=== PATIENT | male | born 1955 | race Two or more races ===

== ENCOUNTER 2024-10-30 21:47 | Emergency (ER) | payer OTHER, SELFPAY ==
[2024-10-30 23:20] VITALS: BP 146/79; PULSE 72; RESP 16; TEMP 36.6; O2SAT 97
[2024-10-30 23:23] LABS: Collection Type, Urine Clean Catch; Squamous Epithelial Cell,Urine 0 /hpf (0-5)
[2024-10-30 23:31] LABS: Bilirubin,Urine Negative (Negative); Blood,Urine Negative (Negative); Clarity,Urine Clear (Clear/Hazy); Color,Urine Lt-Yellow (Lt Yel-Yel); Glucose, Urine Negative (Negative); Ketones,Urine Negative (Negative); Leukocyte Esterase,Urine Positive (Negative); Nitrite,Urine Negative (Negative); PH,Urine 7.0 (5.0-7.0); Protein,Urine Trace (Neg - Trace); RBC,Urine 5 /hpf (0-3); Specific Gravity,Urine 1.029 (1.001-1.035); Urobilinogen,Urine 2.0 mg/dL (0.0-1.0); WBC,Urine 18 /hpf (0-5)
[2024-10-30 23:33] LABS: Culture Indicated,Urine Yes
[2024-10-30 23:37] LABS: Amphetamine/Methamp Scrn,U Negative (Negative); Barbiturate Screen,Urine Negative (Negative); Benzodiazepines Screen,Urine Negative (Negative); Benzoylecgonine Screen, Ur Negative (Negative); Fentanyl Screen,Urine Negative (Negative); Opiate Screen,Urine Negative (Negative); THC Screen,Urine Negative (Negative)
--- NOTE | 2024-10-30 23:57 | PD.EDMALE ---
ED Male Genitalurinary RME/HPI General Chief complaint: Urogenital-Male Stated complaint: PAIN IN URINATION Time Seen by Provider: 10/30/24 23:49 Arrival date/time: 10/30/24 21:47 69M with no known PMH presents to ED with 1 month of dysuria and pain around head of penis. Patient denies discharge. Patient was seen by PCP and given fluconazole and clotrimazole cream for presumed balanitis. Patient states symptoms improved, but they are still there. Patient has pending urologist appt. Limitations: no limitations Related Data Previous Rx's ?Medication ?Instructions ?Recorded cephalexin 750 mg capsule 750 mg PO TID 7 days #21 caps 10/30/24 Allergies Allergy/AdvReac Type Severity Reaction Status Date / Time No Known Allergies Allergy Mild Verified 10/30/24 21:48 Review of Systems Review of Systems Systems Reviewed: All systems reviewed, normal except as documented Constitutional Constitutional: Reports system reviewed and no additional complaints, except as documented, Denies fever(s) and Denies headache(s) ENT Ears, Nose, Mouth, and Throat: Denies disequilibrium and Denies headache(s) Cardiovascular Cardiovascular: Reports system reviewed and no additional complaints, except as documented, Denies chest pain and Denies dyspnea Respiratory Respiratory: Reports system reviewed and no additional complaints, except as documented, Denies cough and Denies dyspnea Gastrointestinal Gastrointestinal: Reports system reviewed and no additional complaints, except as documented, Denies abdominal pain, Denies nausea and Denies vomiting Genitourinary Genitourinary: Reports as per HPI and Reports dysuria Neurologic Neurologic: Reports system reviewed and no additional complaints, except as documented, Denies confusion, Denies disequilibrium and Denies headache(s) Psychiatric Psychiatric: Denies confusion Past Medical History Social History SMOKING STATUS: Never smoker ED Exam General Limitations: Present no limitations General appearance: Present alert and in no apparent distress Head Head exam: Present atraumatic Eye Eye exam: Present normal appearance, PERRL and EOMI ENT ENT exam: Present normal exam, normal oropharynx and mucous membranes moist Neck Neck exam: Present normal inspection, full ROM and trachea midline Chest Chest inspection: Present normal inspection and symmetric chest wall rise Respiratory Respiratory exam: Present normal lung sounds bilaterally Cardiovascular Cardiovascular exam: Present regular rate, normal rhythm and normal heart sounds Abdominal Exam Abdominal exam: Present soft and normal bowel sounds Expanded Exam exam: Present balanitis Extremities Exam Extremities exam: Present normal inspection and full ROM Back Exam Back exam: Present normal inspection and full ROM Neurological Exam Neurological exam: Present alert, oriented X3 and CN II-XII intact Psychiatric Psychiatric exam: Present normal affect and normal mood Skin Skin exam: Present warm, dry, intact and normal color Course Quality Measures none Orders Category Date Time Status Drug Screen,Urine Stat Lab 10/30/24 23:19 Completed Urinalysis, C/S if Indicated Stat Lab 10/30/24 23:19 Completed Urine Culture Stat Lab 10/30/24 23:19 Received cephALEXin [Keflex] Med 10/30/24 23:52 Discontinued 500 mg PO X1 ONE Vital Signs Vital signs: Vital Signs Temperature 97.8 F 10/30/24 23:20 Pulse Rate 72 10/30/24 23:20 Respiratory Rate 16 10/30/24 23:20 Blood Pressure 146/79 H 10/30/24 23:20 Pulse Oximetry (%) 97 10/30/24 23:20 Oxygen Delivery Method Room Air 10/30/24 23:20 O2 at 97% on RA and WNLs Urogenital - Male MDM Narrative MDM Narrative:: 69M with no known PMH presents to ED with 1 month of dysuria and pain around head of penis. Patient denies discharge. Patient was seen by PCP and given fluconazole and clotrimazole cream for presumed balanitis. Patient states symptoms improved, but they are still there. Patient has pending urologist appt. Physical exam with breastfeeding peer counselor JOSE Phelps reveals balanitis and phimosis. Patient is afebrile, calm, and alert. UA shows some WBCs, more likely from rather prominent balanitis vs true UTI. However, will give ABX that covers both. Patient data External records reviewed:: None Clinical information provided by:: patient Social determinants that could affect healthcare access:: none Patient has the following chronic illnesses:: none How is presenting disease/condition affected by chronic disease/condition?: no chronic disease Evaluation data The following diagnostics were reviewed and interpreted by me:: lab results Lab and/or radiology exams considered but not ordered:: ordered Interpretation Summary: above Medications / Prescriptions Medications or Prescriptions considered but not ordered:: ordered Medication administrations:: Medication Administration History Discontinued Medications Cephalexin HCl (Cephalexin 250 Mg Capsule) 500 mg PO X1 ONE Stop: 10/30/24 23:53 above Consultations Consultation(s) initiated? (list below): No Diagnosis Urogenital Male Differential Diagnosis: urinary tract infection, priapism, urethritis, epididymitis, genital herpes simplex, prostatitis, acute retention of urine, inguinal hernia and other (balanitis) Most likely diagnosis given after review of the tests above:: balanitis and UTI Admission Indicated Admission indicated?: not indicated Admission Request Was there a request for admission?: No Disposition Plan Disposition Plan: Discharge Discharge Attestation Discharge Attestation: The patient and all family members were given an opportunity to ask questions and understood the discharge instructions. Discharge instructions specifically effects, indications for sooner follow up or return to the emergency department, and the expected course of current diagnosis. Patient condition: Stable Discharge Plan Plan Patient Disposition: HOME (Self Care) Discharge Disposition comment: Stable Prescriptions/Referrals Prescriptions/Med Rec: New cephalexin 750 mg capsule 750 mg PO TID 7 Days Qty: 21 0RF Problem List Clinical Impression: Urinary tract infection, Balanitis Patient/Caregiver Discharge Instructions Education Materials: ED Balanitis, ED Bladder Infection, Male (Adult) Additional Instructions: Please follow-up with PCP within 24-48 hours and return immediately if symptoms worsen. Continue using cream. Print Language: Tajik Stand Alone Forms: Patient Portal Info Letter THERESA/MADDISON Supervising Physician PATSY Supervising Physician: Dr. Hernandez
== END 2024-10-31 | disposition home or self-care (01) ==
LOC: SERX 23:59
PROVIDERS: Physician Assistant; Emergency Provider Emergency Medicine
DX: N39.0 Urinary tract infection, site not specified (principal); N48.1 Balanitis
CPT/HCPCS: 80307; 81001; 87086; 99282; A9270

== ENCOUNTER → 2024-11-19 | Outpatient (CLI) | payer OTHER, SELFPAY ==
--- NOTE | 2024-11-19 10:30 | XR_ITS ---
Examination: Ultrasound abdominal aorta TECHNIQUE: Grayscale sonographic images abdominal aorta Date and time: November 19, 2024 1030 hours INDICATIONS: Physician's order: Nicotine dependence findings: Transverse dimension proximal aorta 1.9 cm mid aorta 1.6 cm distal aorta 1.4 cm right iliac 1.0 cm left iliac 1.2 cm IMPRESSION: Negative for abdominal aortic aneurysm
== END | disposition home or self-care (01) ==
PROVIDERS: Referring Provider Nurse Practitioner Family; Visit Provider Nurse Practitioner Family
DX: F17.211 Nicotine dependence, cigarettes, in remission (principal)
CPT/HCPCS: 76706

== ENCOUNTER 2024-12-20 06:10 | Day surgery (SDC) | payer OTHER, SELFPAY ==
--- NOTE | 2024-12-18 07:00 | EKG_ITS ---
[facility] Test Date: 2024-12-18 Pat Name: SMITA CARRERA Department: Room: - Gender: Male Perinatal Tech: AFSANEH : 1955 Requested By: Po Paige Order Number: [id number] Reading MD: Po Paige Measurements Intervals [place] Rate: 70 P: 66 MD: 180 QRS: -24 QRSD: 97 T: 31 QT: 414 QTc: 449 Interpretive Statements SINUS RHYTHM BORDERLINE LEFT AXIS DEVIATION [QRS AXIS < -20] No previous ECG available for comparison /store/S0/[id number]/ecg/[id number].pdf
[2024-12-18 09:02] VITALS: BMI 23.5
[2024-12-18 09:39] LABS: Collection Type, Urine Clean Catch
[2024-12-18 11:57] LABS: Basophils # (Auto) 0.0 Thou/mm3 (0.0-0.2); Basophils % (Auto) 1 % (0-2.5); Eosinophils # (Auto) 0.1 Thou/mm3 (0.0-0.5); Eosinophils % (Auto) 1 % (0-10); Hematocrit 44.3 % (41.0-53.0); Hemoglobin 15.4 g/dL (13.5-16.0); Immature Granulocytes Auto 0.03 Thou/mm3 (0.00-0.00); Lymphocytes # (Auto) 1.7 Thou/mm3 (1.0-4.8); Lymphocytes % (Auto) 26 % (10-50); Mean Corpuscular HGB Conc 34.8 g/dl (31.0-37.0); Mean Corpuscular Hemoglobin 31.8 pg (25.0-35.0); Mean Corpuscular Volume 92 fL (80-100); Monocytes # (Auto) 0.5 Thou/mm3 (0.0-0.8); Monocytes % (Auto) 8 % (0-12); Neutrophils # (Auto) 4.2 Thou/mm3 (1.8-7.7); Neutrophils % (Auto) 64 % (37-80); Nucleated Red Blood Cell # 0.00 Thou/mm3 (0.00-0.00); Nucleated Red Blood Cell % 0 /100 WBC (0); Platelet Count 231 Thou/mm3 (140-440); RDW Standard Deviation 41.8 fL (35.1-43.9); Red Blood Count 4.84 Miln/mm3 (4.50-5.90); White Blood Count 6.6 Thou/mm3 (3.8-10.6)
[2024-12-18 12:02] LABS: Bacteria,Urine 1+; Bilirubin,Urine Negative (Negative); Blood,Urine Negative (Negative); Clarity,Urine Clear (Clear/Hazy); Color,Urine Yellow (Lt Yel-Yel); Glucose, Urine Negative (Negative); Hyaline Casts,Urine < 1 /hpf (0-1); Ketones,Urine Negative (Negative); Leukocyte Esterase,Urine Positive (Negative); Nitrite,Urine Negative (Negative); PH,Urine 7.0 (5.0-7.0); Protein,Urine Negative (Neg - Trace); RBC,Urine 24 /hpf (0-3); Specific Gravity,Urine 1.024 (1.001-1.035); Squamous Epithelial Cell,Urine 6 /hpf (0-5); Urobilinogen,Urine Negative mg/dL (0.0-1.0); WBC,Urine 240 /hpf (0-5)
[2024-12-18 12:09] LABS: Alanine Aminotransferase 78 U/L (10-49); Albumin, Serum 4.3 gm/dL (3.4-4.8); Albumin/Globulin Ratio 1.6 (1.2-2.2); Alkaline Phosphatase 100 U/L (46-116); Anion Gap 9 (7-16); Aspartate Amino Transferase 35 U/L (0-34); BUN/Creatinine Ratio 10 Ratio (12-20); Bilirubin,Total 1.1 mg/dL (0.3-1.2); Blood Urea Nitrogen 10 mg/dL (9-23); Calcium 9.1 mg/dL (8.3-10.6); Calcium (Corrected) 9.1 mg/dL (8.5-10.1); Carbon Dioxide 26.6 mMol/L (20.0-31.0); Chloride 107 mMol/L (98-107); Creatinine (Component) 1.0 mg/dL (0.6-1.3); Estimated Creatinine Clearance 57.6 mL/min (>60); Globulin 2.7 gm/dL (2.3-3.5); Glucose 105 mg/dL (74-106); Osmolality,Calculated 283 (275-295); Potassium 3.6 mMol/L (3.4-5.1); Sodium 143 mMol/L (136-145); Total Protein 7.0 gm/dL (5.7-8.2); eGFR > 60 See Note
--- NOTE | 2024-12-19 11:01 | ESHP_ITS ---
RE: SMITA CARRERA : 1955 DATE OF ADMISSION: 12/20/2024 HISTORY OF PRESENT ILLNESS: The patient is a 69-year-old Tongan-speaking male who was referred to me with a history of phimosis. He has trouble urinating and his foreskin is closing over. There is no history of blood in the urine. PAST SURGICAL HISTORY: Included operation on his jaw. SOCIAL HISTORY: He has 2 children. ALLERGIES: NONE KNOWN. PAST MEDICAL HISTORY: There is no history of diabetes mellitus or no history of hypertension. HOME MEDICATIONS: He takes cholesterol medication. PHYSICAL EXAMINATION: HEENT: Normal. NECK: Supple. LUNGS: Clear. CARDIOVASCULAR: Heart sounds are normal. ABDOMEN: Soft without any organomegaly. No guarding. No rigidity. EXTREMITIES: Normal. GENITOURINARY: Phallus is revealing tight phimosis. Testes are down in the scrotum. IMPRESSION: Tight phimosis. PLAN: Circumcision. Planned procedure, risks and complications have been discussed with the patient. The patient has understood them and agreed to proceed. DT: 09:12:16 TT: 11:00:00 Ref: [id number] - TID: [id number]
[2024-12-20] VITALS (8 sets, daily range): BP systolic 100–142; BP diastolic 63–80; PULSE 68–85; RESP 12–20; TEMP 36.1–36.6; O2SAT 97–99; BMI 23.1
--- NOTE | 2024-12-20 07:25 | SUR.PREOP ---
Patient expressed gratitude for prayer before their procedure.
--- NOTE | 2024-12-20 09:30 | SUR.PHASEI ---
pt received from OR in recovery bay 5. pt asleep but responds to voice, breathing unlabored on nc 6l. v/s stable. pt dressing to penis cdi. report received from Maurisio ANDREWS and Librado WELLER.
--- NOTE | 2024-12-20 10:04 | SUR.PHASEII ---
pt able to tolerate oral fluids without difficulty swallowing or nausea/vomiting.
--- NOTE | 2024-12-20 10:41 | SUR.PHASEII ---
pt awake and alert, breathing unlabored on room air. v/s stable. pt dressing to penis cdi. pt able to ambulate to wheelchair with steady gait. d/c instructions given with friend Deann in room using sander wooden pencils Melissa [id number], all questions answered. pt d/c via wheelchair with all belongings.
--- NOTE | 2024-12-20 12:05 | ESOP_ITS ---
RE: SMITA CARRERA : 1955 DATE OF OPERATION: 12/20/2024 PREOPERATIVE DIAGNOSIS: Tight phimosis. POSTOPERATIVE DIAGNOSIS: Tight phimosis. PROCEDURE PERFORMED: Circumcision. ANESTHESIA: General by Dr. Booth. INDICATION: The patient is a 69-year-old male with tight phimosis. He does not have any history of diabetes. He had a history of balanoposthitis. He is now scheduled to have circumcision. Planned procedure, risks, and complications have been discussed with the patient. The patient understood them and agreed to proceed. DESCRIPTION OF PROCEDURE: After the patient was brought to the operating table under adequate general anesthesia in supine position, parts were prepped and draped in the usual fashion. Circumcision was then carried out in a standard fashion by excising the foreskin in a circumferential manner at the level of ohara glandis. Sleeve of foreskin was removed. Complete hemostasis was obtained by using electrocoagulation. Skin was reapproximated back by using interrupted sutures of 3-0 chromic catgut. Sterile dressing was then applied. Local anesthetic was injected at the base of the penis for relief of postoperative pain. The patient tolerated the entire procedure well and left the room in good condition. Sponge count and needle count at the end of the procedure was found to be correct. Estimated blood loss was approximately 5 mL. DT: 09:46:31 TT: 12:04:00 Ref: [id number] - TID: [id number]
== END 2024-12-20 10:41 | disposition home or self-care (01) ==
PROVIDERS: Anesthesiology; PCP Nurse Practitioner Family; Referring Provider Surgery; Visit Provider Surgery
PROC: (CPT 54161; principal; 2024-12-20 08:30)
DX: N47.1 Phimosis (principal); Z01.810 Encounter for preprocedural cardiovascular examination
CPT/HCPCS: 54161; 36415; 80053; 81001; 85025; 93005; A4217; A4649; J0690; J1100; J2250; J2371; J2405; J2704; J3010; J3490; A9270; J0665